=== PATIENT | male | born 1955 | race Caucasian/White ===

== ENCOUNTER → 2023-10-10 12:03 | Outpatient (REF) | payer BC, SELFPAY ==
[2023-10-10 13:25] LABS: % Basophils 0.8 % (0-2); % Eosinophils 1.5 % (0-6); % Immature Granulocytes 0.3 % (0-0.5); % Lymphocytes 23.8 % (20.5-51.1); % Monocytes 6.8 % (1.7-9.3); % Neutrophils 66.8 % (42.2-75.2); Absolute Basophils 0.1 10^3/uL (0-0.2); Absolute Eosinophils 0.1 10^3/uL (0-0.7); Absolute Lymphocytes 1.4 10^3/uL (1.2-3.4); Absolute Monocytes 0.4 10^3/uL (0.1-0.6); Absolute Neutrophils 4.1 10^3/uL (1.4-6.5); Hematocrit 51.6 % (39.0-52.0); Mean Corp Hgb Conc. 34.9 g/dL (33.0-37.0); Mean Corpuscular Hgb 31.5 pg (27.0-31.0); Mean Corpuscular Volume 90.4 fL (80.0-94.0); Mean Platelet Volume 10.6 fL (7.4-10.4); Nucleated Red Blood Cells % 0 % (-); Platelet Count 143 10^3/uL (130-400); Red Blood Cell Count 5.71 10^6/uL (4.70-6.10); Red Cell Dist. Width 12.6 % (11.5-14.5); White Blood Cell Count 6.1 10^3/uL (4.8-10.8)
[2023-10-10 13:51] LABS: ALT (SGPT) 23 U/L (0-50); AST (SGOT) 27 U/L (17-59); Albumin 4.7 g/dl (3.5-5.0); Alkaline Phosphatase 76 U/L (38-126); Calcium 9.8 mg/dl (8.4-10.2); Carbon Dioxide 25 mmol/L (22-30); Chloride 98 mmol/L (98-107); Glucose 91 mg/dl (70-99); Potassium 4.1 mmol/L (3.5-5.1); Sodium 130 mmol/L (135-145); Total Bilirubin 1.2 mg/dl (0.2-1.3); Total Protein 7.1 g/dl (6.3-8.2); eGFR > 60.00
[2023-10-10 14:00] LABS: Blood Urea Nitrogen 26 mg/dl (9-20)
[2023-10-10 14:22] LABS: PSA, Total - Screen 1.64 ng/ml (0.0-4.0)
== END ==
LOC: REG 12:03
PROVIDERS: ATTENDING PHYSICIAN Physician Assistant
DX: R73.03 Prediabetes (principal); R73.01 Impaired fasting glucose; I73.9 Peripheral vascular disease, unspecified; R79.9 Abnormal finding of blood chemistry, unspecified; Z12.5 Encounter for screening for malignant neoplasm of prostate
CPT/HCPCS: 36415; 80053; 85025; G0103

== ENCOUNTER → 2023-12-22 09:50 | Outpatient (REF) | payer BC, SELFPAY | LOC: RAD 09:50 | PROVIDERS: ATTENDING PHYSICIAN Surgery Vascular Surgery | DX: I73.9 Peripheral vascular disease, unspecified (principal) | CPT/HCPCS: 93922; 93925; 93978 ==

== ENCOUNTER → 2023-12-28 13:55 | Outpatient (REF) | payer BC, SELFPAY | LOC: RAD 13:55 | PROVIDERS: ATTENDING PHYSICIAN Surgery Vascular Surgery | DX: I73.9 Peripheral vascular disease, unspecified (principal) | CPT/HCPCS: 75635; Q9967 ==

== ENCOUNTER 2024-02-14 06:17 | Day surgery (SDC) | payer BC, SELFPAY ==
[2024-02-09 09:48] VITALS: BMI 30.8
[2024-02-09 10:35] LABS: INR 2.04; PT 22.9 Sec (11.4-14.6)
[2024-02-09 10:36] LABS: APTT 45.3 Sec (23.4-35.0)
[2024-02-09 12:02] LABS: % Basophils 0.7 % (0-2); % Eosinophils 2.2 % (0-6); % Immature Granulocytes 0.5 % (0-0.5); % Lymphocytes 19.8 % (20.5-51.1); % Monocytes 7.6 % (1.7-9.3); % Neutrophils 69.2 % (42.2-75.2); Absolute Eosinophils 0.1 10^3/uL (0-0.7); Absolute Lymphocytes 1.2 10^3/uL (1.2-3.4); Absolute Monocytes 0.5 10^3/uL (0.1-0.6); Absolute Neutrophils 4.1 10^3/uL (1.4-6.5); Hemoglobin 15.8 g/dL (13.0-18.0); Mean Corp Hgb Conc. 34.3 g/dL (33.0-37.0); Mean Corpuscular Hgb 31.9 pg (27.0-31.0); Mean Corpuscular Volume 92.7 fL (80.0-94.0); Mean Platelet Volume 10.3 fL (7.4-10.4); Nucleated Red Blood Cells % 0 % (-); Platelet Count 179 10^3/uL (130-400); Red Blood Cell Count 4.96 10^6/uL (4.70-6.10); Red Cell Dist. Width 13.5 % (11.5-14.5); White Blood Cell Count 5.9 10^3/uL (4.8-10.8)
[2024-02-09 12:55] LABS: Blood Urea Nitrogen 17 mg/dl (9-20); Calcium 9.3 mg/dl (8.4-10.2); Carbon Dioxide 26 mmol/L (22-30); Chloride 101 mmol/L (98-107); Estimated Creatinine Clearance 93 ml/min; Glucose 102 mg/dl (70-99); Potassium 4.5 mmol/L (3.5-5.1); Sodium 134 mmol/L (135-145); eGFR > 60.00
--- NOTE | 2024-02-09 13:13 | PTCARENOTE ---
Christianne Frye made aware of PTT 45.3 and INR 2.04.
[2024-02-14] VITALS (26 sets, daily range): BP systolic 115–176; BP diastolic 56–88
--- NOTE | 2024-02-14 06:54 | HP.FOC2 ---
Focused History & Physical
Chief Complaint
HPI:
Chief Complaint: Peripheral arterial disease
HPI / Indication for Planned Procedure: This is a 68-year-old male with significant past medical history for peripheral arterial disease with elevated velocities noted on noninvasive studies from 12/22/2023 at left iliac stent. He reports for
planned aortogram and pelvic angiogram and right lower extremity arteriogram with possible left iliac artery angioplasty stent as well as right lower extremity possible angioplasty stent as scheduled with Dr. Keyon Alvarado. He denies any recent illness,
trauma, or hospitalizations and reports he is at baseline health.
Relevant Past Medical History: Other (Heart murmur, nephrolithiasis, left knee dislocation and patellar tendon rupture, migraines, DVT, and PAD)
Relevant Social History: Tobacco Use
Relevant Family History: Positive for (Maternal Parkinson's and diabetes)
Relevant Past Surgical History: Positive for (Tonsillectomy, repair of torn patella tendon, colonoscopy, left iliac stent, back surgery)
Medication
See Medication form for detailed medications: Yes
Medication List (including Herbals & OTC):
tamsulosin 0.4 mg capsule 0.4 mg PO DAILY@1200 Urinary Issue 12/05/22
fluticasone 100 mcg-salmeterol 50 mcg/dose blistr powdr for inhalation (Wixela Inhub) 1 inh inhalation BID Lung/Breathing Issues 12/07/22
rivaroxaban 20 mg tablet (Xarelto) 20 mg PO DAILY Blood Clot Prevention/Tx 12/07/22
aspirin 81 mg chewable tablet 81 mg PO DAILY #190 tabs 04/28/23
atorvastatin 10 mg tablet 10 mg PO QPM #190 tabs 04/28/23
fluticasone propionate 50 mcg/actuation nasal spray,suspension (Flonase Allergy Relief) 1 spray intranasal DAILY 02/08/24
hydrochlorothiazide 50 mg tablet 50 mg PO DAILY 02/08/24
Medications Reviewed: Yes
Allergies and Reactions
Patient has Allergies: No
Noted Allergies and Reactions:
Allergy/AdvReac Type Severity Reaction Status Date / Time
No Known Allergies Allergy Verified 02/08/24 12:01
Pertinent Physical Exam
All Other Systems: Negative
Head/Neck: Normal
Lungs: Normal (BL lungs CTA)
Heart: Other (+murmur, regular rate rhythm)
Abdomen: Normal
Extremities: Other (Bilateral DP/PT nonpalpable)
Neurological: Normal
Diagnosis / Assessment
Assessment: Peripheral arterial disease
Plan / Procedure
Plan: Proceed with scheduled procedure of aortogram, pelvic angiogram, right lower extremity arteriogram with possible left iliac artery angioplasty/stent, and right lower extremity possible angioplasty stent
Anesthesia/Sedation to be done by Anesthesia Provider: Yes
--- NOTE | 2024-02-14 07:01 | W.SUR.PREOP ---
Pre-Operative Surgical Note
-
I have examined this patient prior to the performance of the scheduled procedure.
The patient's condition is unchanged from the time of the current History and
Physical and the patient is able to undergo the scheduled procedure.
--- NOTE | 2024-02-14 08:53 | W.SUR.POST ---
Surgical Immediate Post Op
Note
Pre Op Diagnosis: PAD
Post Op Diagnosis: PAD
Procedure Performed: Aortogram, RLE angiogram, angioplasty RLE distal anastomosis bypass graft and popliteal below the knee with drug coated balloon, left iliac artery ULTRASOUND TECHNOL/stent
Primary Surgeon: Keyon Alvarado MD
Secondary Surgeons: None
Anesthesia: MAC
Estimated Blood Loss: 2 ml
Fluids: See anesthesia flowsheet
Drains/Shunts: N/A
Specimens/Cultures: N/A
Doppler/Duplex/Angio (Y/N): Y
Complications: None
Operative Findings: successful endovascular intervention
--- NOTE | 2024-02-14 09:31 | OR.RPT ---
Addendum entered and electronically signed by Keyon Alvarado MD 02/14/24 16:50:
Correction to below note - Left iliac stent that did 'lurch more proximally' on deployment partially encroached on his pelvic renal artery, not the internal iliac artery as noted in my note below.
However, no flow limitation into the vessel, with complete nephrogram noted on completion imaging.
Original Note:
Operative Report
Operative Report
PROCEDURE DATE: 02/14/2024
Preoperative diagnosis:
1. Severe multilevel peripheral arterial disease status post left to right femoral to femoral artery bypass and concomitant right femoral to below-knee popliteal artery bypass.
2. High-grade stenosis left iliac artery proximal to stent, concern for inadequate inflow to bypass graft.
3. Right lower extremity bypass graft distal anastomotic/outflow popliteal artery stenosis, concern for failing graft.
Postoperative diagnosis: Same
Procedure:
1. Duplex assisted left common femoral cannulation.
2. Right lower extremity arteriogram with selective cannulation of right peroneal artery via left common femoral artery puncture.
3. Balloon angioplasty of distal anastomosis and below-knee popliteal artery (outflow) right lower extremity with 4 mm standard angioplasty balloon, 5 mm x 4 cm drug-coated Bard Lutonix balloon.
4. Balloon angioplasty of proximal to mid bypass graft focal weblike stenosis with 4 mm and a 5 mm angioplasty balloon.
5. Catheter advancement and wire advancement into abdominal aorta with aortogram/pelvic angiogram.
6. Balloon angioplasty and stent placement left proximal/origin external iliac artery overlapping into existing stent with 8 mm x 4 cm Cook Zilver PTX drug-eluting stent.
7. Supervision and interpretation.
Surgeon: Christiano
Preschool Disability Teacher: None
Complications: None
Anesthesia: Local, sedation
Fluoroscopy:
16.7 min
242 mGy
50.99 Gy.cm2
Indications for procedure:
Multilevel revascularization procedures, concern for failing or threatened bypass graft given distal anastomosis/outflow artery elevated velocity, and also elevated velocity and concern for new stenosis in more proximal left iliac. (Confirmed on CT
scan). Drop in ERWIN as well. Therefore discussed with patient attempted revascularization/angiography. Risk/benefit/alternatives all fully discussed. Patient understood all wish to proceed.
Description of procedure:
Patient was identified, brought to the operating room. Placed on the table in the supine position. After the adequate administration of anesthesia, the patient was prepped and draped in the standard surgical fashion. A standard preoperative
timeout was undertaken and everybody was in agreement with the plan.
The left common femoral artery was accessed with a micropuncture kit under direct duplex ultrasound guidance. I punctured the artery exactly at the bifurcation right on the distal dee of the bypass graft so that I could hopefully wire into both
the femoral to femoral bypass to treat the right lower extremity, and then wire into the iliac system as well. A 5 [place] sheath was then advanced over a 0.035 inch wire, and the wire followed into the femoral to femoral bypass and into the right
femoral system. Next, I obtained a right lower extremity arteriogram. This demonstrated patent right common femoral artery, patent proximal anastomosis. In the proximal third to mid segment of the bypass graft there is a weblike stenosis which I
not appreciated on CT scan earlier. When I look back on the CT scan there was actually stenosis there, but it is in the vicinity of the clips and sewed up secures it slightly. However it appeared to be a real stenosis. In addition there was
stenosis is noted distally immediately beyond the distal anastomosis or at the toe of the anastomosis into the outflow artery. This was as noted on CT scan imaging. Runoff consisted proximally of a three-vessel runoff, the peroneal artery was
relatively poor distally. However the PT appeared to be the more dominant of the other vessels. At this point I selectively cannulated the bypass graft and then exchanged for a 5 [place] up and over sheath over a Storq wire. The patient was given
7000 units of intravenous heparin.
Next, under roadmap assisted guidance I was able to gain wire access using a flopping on hydrophilic wire and a CXI catheter into the peroneal artery. I now exchanged for a Storq wire. I performed balloon angioplasty of the distal stenosis at the
distal astomosis/outflow below-knee popliteal artery. This was completed with a standard 4 mm angioplasty balloon. On completion angiogram, there was still residual stenosis and therefore I then used a 5 mm x 4 cm drug-coated Bard Lutonix
drug-coated balloon with prolonged inflation in the standard fashion. Completion angiogram now demonstrated improved result with no residual stenosis. At this point I withdrew my sheath and performed angiogram again to identify and localize the
weblike stenosis in the more proximal graft. I then performed balloon angioplasty of that with a 4 mm standard angioplasty balloon. This actually undersized the graft as it was fairly large at this point. Completion angiogram demonstrated still
residual stenosis, and therefore I upsized to a 5 mm angioplasty balloon. Completion angiogram now demonstrated excellent result with complete resolution. However runoff angiogram demonstrated almost a recurrent stenosis or vasospasm (more likely
elastic recoil) of the distal angioplasty site that I had done prior. I therefore then used a 4 mm angioplasty balloon again and used a prolonged inflation time. Completion angiogram now demonstrated resolution of the stenosis with good flow now.
At this point, I wish to image and treat the iliac stenosis. I had great difficulty pulling the sheath back and wiring into the iliac from this site without repuncturing. However, I was finally able to do it with the assistance of a glide
catheter. My wire went up into the aorta (Glidewire), and then was able to advance a glide catheter and then this sheath. Now that I had access into the iliac system, I performed aortogram/left iliac angiography. Identified the area of stenosis
which basically began at the very origin of the external iliac artery with an irregular plaque which was noted on CT scan. I would have to landmine stent just at the origin of the external iliac artery, attempting not to impinge on the internal
iliac artery, but I elected to use a bare-metal stent in the case that the internal iliac artery got covered little bit. I position the stent in good position, and deployed it. During deployment it did lurch more proximally slightly unfortunately.
However very little. I then ballooned it with a 7 mm and then 8 mm angioplasty balloon. Completion angiogram demonstrated excellent result. There was good filling of both the external and the internal iliac artery. At this point is very
satisfied. Wires and catheters were removed. The patient was given some protamine to reverse the heparin. The patient was transferred to the recovery room in stable condition where the sheath will be withdrawn and manual pressure will be applied.
The patient tolerated procedure well. He had a palpable graft pulse and good Doppler signals in the DP and PT on the right lower extremity upon completion.
== END 2024-02-14 15:40 | disposition home or self-care (01) ==
LOC: CATH 06:17
PROVIDERS: ATTENDING PHYSICIAN Surgery Vascular Surgery; FAMILY PHYSICIAN Physician Assistant
DX: T82.858A Stenosis of other vascular prosthetic devices, implants and grafts, initial encounter (principal); Y83.2 Surgical operation with anastomosis, bypass or graft as the cause of abnormal reaction of the patient, or of later complication, without mention of misadventure at the time of the procedure; Z95.820 Peripheral vascular angioplasty status with implants and grafts; I70.291 Other atherosclerosis of native arteries of extremities, right leg; I70.202 Unspecified atherosclerosis of native arteries of extremities, left leg; I70.302 Unspecified atherosclerosis of unspecified type of bypass graft(s) of the extremities, left leg; Z79.899 Other long term (current) drug therapy; Z98.890 Other specified postprocedural states; F17.210 Nicotine dependence, cigarettes, uncomplicated; Z79.01 Long term (current) use of anticoagulants; Z79.82 Long term (current) use of aspirin; Z86.718 Personal history of other venous thrombosis and embolism
CPT/HCPCS: 37221; 37246; 37224; 36415; 75625; 75710; 76937; 80048; 85025; 85610; 85730; 86850; 86900; 86901; 93005; C1725; C1769; C1874; C1887; C1894; C2623; Q9967

== ENCOUNTER → 2024-04-04 13:05 | Outpatient (REF) | payer BC, SELFPAY | LOC: RAD 13:05 | PROVIDERS: ATTENDING PHYSICIAN Surgery Vascular Surgery; FAMILY PHYSICIAN Physician Assistant | DX: I73.9 Peripheral vascular disease, unspecified (principal) | CPT/HCPCS: 93922; 93925; 93978 ==

== ENCOUNTER → 2024-10-22 13:18 | Outpatient (REF) | payer BC, SELFPAY | LOC: DHVS 13:18 | PROVIDERS: ATTENDING PHYSICIAN Registered Nurse; FAMILY PHYSICIAN Physician Assistant; OTHER PHYSICIAN Surgery Vascular Surgery | DX: I73.9 Peripheral vascular disease, unspecified (principal) | CPT/HCPCS: 93922; 93925; 93978 ==

== ENCOUNTER → 2024-12-03 15:45 | Outpatient (REF) | payer BC, SELFPAY ==
[2024-12-03 17:28] LABS: % Basophils 0.8 % (0-2); % Immature Granulocytes 0.3 % (0-0.5); % Lymphocytes 22.2 % (20.5-51.1); % Monocytes 7.6 % (1.7-9.3); % Neutrophils 67.1 % (42.2-75.2); Absolute Basophils 0.1 10^3/uL (0-0.2); Absolute Eosinophils 0.2 10^3/uL (0-0.7); Absolute Lymphocytes 1.7 10^3/uL (1.2-3.4); Absolute Monocytes 0.6 10^3/uL (0.1-0.6); Absolute Neutrophils 5.2 10^3/uL (1.4-6.5); Hematocrit 47.4 % (39.0-52.0); Hemoglobin 16.4 g/dL (13.0-18.0); Mean Corp Hgb Conc. 34.6 g/dL (33.0-37.0); Mean Corpuscular Hgb 31.8 pg (27.0-31.0); Mean Platelet Volume 10.1 fL (7.4-10.4); Nucleated Red Blood Cells % 0 % (-); Platelet Count 178 10^3/uL (130-400); Red Blood Cell Count 5.15 10^6/uL (4.70-6.10); White Blood Cell Count 7.7 10^3/uL (4.8-10.8)
[2024-12-03 17:51] LABS: ALT (SGPT) 25 U/L (0-50); AST (SGOT) 21 U/L (17-59); Albumin 4.5 g/dl (3.5-5.0); Alkaline Phosphatase 53 U/L (38-126); Blood Urea Nitrogen 17 mg/dl (9-20); Calcium 9.4 mg/dl (8.4-10.2); Carbon Dioxide 24 mmol/L (22-30); Chloride 103 mmol/L (98-107); Glucose 101 mg/dl (70-99); HDL Cholesterol 63 mg/dl; LDL Cholesterol, Calculated 49 mg/dl; Potassium 4.2 mmol/L (3.5-5.1); Sodium 136 mmol/L (135-145); Total Cholesterol 122 mg/dl (50-199); Total Protein 6.4 g/dl (6.3-8.2); Triglyceride 54 mg/dl (10-149); Very Low Density Lipoprotein 10 mg/dl (0-30); eGFR > 60.00
[2024-12-03 18:20] LABS: PSA, Total - Screen 1.75 ng/ml (0.0-4.0)
== END ==
LOC: REG 15:45
PROVIDERS: ATTENDING PHYSICIAN Surgery Vascular Surgery; FAMILY PHYSICIAN Physician Assistant
DX: I73.9 Peripheral vascular disease, unspecified (principal); F17.200 Nicotine dependence, unspecified, uncomplicated; J44.9 Chronic obstructive pulmonary disease, unspecified; I70.0 Atherosclerosis of aorta; I70.203 Unspecified atherosclerosis of native arteries of extremities, bilateral legs; Z12.5 Encounter for screening for malignant neoplasm of prostate
CPT/HCPCS: 36415; 80053; 80061; 85025; G0103

== ENCOUNTER → 2024-12-06 12:27 | Outpatient (REF) | payer BC, SELFPAY | LOC: RAD 12:27 | PROVIDERS: ATTENDING PHYSICIAN Surgery Vascular Surgery; FAMILY PHYSICIAN Physician Assistant | DX: I73.9 Peripheral vascular disease, unspecified (principal) | CPT/HCPCS: 75635; Q9967 ==

== ENCOUNTER 2025-02-26 06:23 | Day surgery (SDC) | payer BC, SELFPAY | END 2025-02-26 10:02 | disposition home or self-care (01) | LOC: GI 06:23 | PROVIDERS: ATTENDING PHYSICIAN Surgery | DX: Z12.11 Encounter for screening for malignant neoplasm of colon (principal); K57.30 Diverticulosis of large intestine without perforation or abscess without bleeding; K63.5 Polyp of colon; Z86.0100 Personal history of colon polyps, unspecified | CPT/HCPCS: 45380; 88305 ==

== ENCOUNTER → 2025-06-10 13:51 | Outpatient (REF) | payer BC, SELFPAY | LOC: RAD 13:51 | PROVIDERS: ATTENDING PHYSICIAN Surgery Vascular Surgery; FAMILY PHYSICIAN Physician Assistant | DX: I73.9 Peripheral vascular disease, unspecified (principal) | CPT/HCPCS: 93922; 93925; 93978 ==